=== PATIENT | female | born 1955 | race Caucasian/White ===

== ENCOUNTER 2017-03-11 11:14 | Emergency (ER) | payer BC ==
[2017-03-11 11:26] VITALS: BP 148/76
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
== END 2017-03-11 11:42 | disposition home or self-care (01) ==
LOC: UCEAST 11:14
DX: S60.042A Contusion of left ring finger without damage to nail, initial encounter (principal); E78.5 Hyperlipidemia, unspecified; I10 Essential (primary) hypertension; F17.210 Nicotine dependence, cigarettes, uncomplicated; W22.8XXA Striking against or struck by other objects, initial encounter; Y92.9 Unspecified place or not applicable
CPT/HCPCS: 99213; G0463

== ENCOUNTER 2017-03-11 11:45 | Day surgery (SDC) | payer BC ==
[~2017-03-11 11:45] MED LIST: Acetaminophen TAB* 325 MG PO PRN; Buffered Lidocaine 0.9% SYRIN* 5 ML/SYR SYRINGE INTRADERM ONE
[2017-03-11] MEDS ORDERED: fentaNYL* 50 MCG/ML 2 ML VIAL (100 MCG VIAL) ONE (12:10)
[2017-03-11] MEDS ORDERED: Midazolam* 1 MG/ML 2 ML VIAL (2 MG) ONE (12:10)
[2017-03-11 13:52] VITALS: BP 144/68
[2017-03-11] MEDS ORDERED: Tetracaine 0.5% OPTH.SOL 4 ML* 1 DROP BTL ONE (16:14)
[2017-03-11] MEDS ORDERED: Lidocaine 1% MPF* 2 ML VIAL ONE (16:14)
[2017-03-11] MEDS ORDERED: acetaZOLAMIDE TAB* 250 MG ONE (16:14)
[2017-03-11] MEDS ORDERED: Ketorolac 0.5% OPHTH (NF) 0.5 % 5 ML BTL ONE (16:14)
[2017-03-11] MEDS ORDERED: Povidone Iodine 5% OPTH* 30 ML BTL ONE (16:14)
[2017-03-11] MEDS ORDERED: Phenylephrine 2.5% OPTH.SOL* 2 ML BTL ONE (16:14)
[2017-03-11] MEDS ORDERED: Cyclopentolate 1% OPTH.SOL* 2 ML BTL ONE (16:14)
[2017-03-11] MEDS ORDERED: Tropicamide 1% OPTH.SOL* BTL ONE (16:14)
[2017-03-11] MEDS ORDERED: Neomycin/Polymy/Dex OPHTH.OIN* 3.5 GM ONE (16:14)
[2017-03-11] MEDS ORDERED: Buffered Lidocaine 0.9% SYRIN* 5 ML/SYR SYRINGE ONE (16:14)
--- NOTE | 2017-03-12 03:27 | OP ---
DATE OF OPERATION: 03/11/17 - [facility] DATE OF : 55 SURGEON: Paul Linder MD ANESTHESIOLOGIST: Preston Navarro MD ANESTHESIA: Monitored anesthesia care. PRE-OP DIAGNOSIS: Cataract, right eye. POST-OP DIAGNOSIS: Cataract, right eye. OPERATIVE PROCEDURE: Cataract surgery of the right eye. IMPLANTS: SN60WF 24.0 diopter lens to the right eye. COMPLICATIONS: None. DESCRIPTION OF PROCEDURE: The patient was given phenylephrine 2.5% and cyclopentolate 1% eye drops to the operative eye in the preoperative area. The patient was brought to the operating room where a time-out was taken to identify the correct patient, site and side of the surgery. The patient's right eye was prepped and draped in the usual sterile fashion with 5% Betadine. A second time- out was taken to verify the correct patient, site and side of surgery, and correct lens selection. A lid speculum was placed to the right eye. A 1-mm paracentesis blade was used to make a clear corneal incision in the superotemporal position. Preservative-free 1% lidocaine was injected into the anterior chamber. DisCoVisc was then injected into the anterior chamber. A 2.75-mm keratome blade was used to make a triplanar incision at the inferotemporal position. A cystotome initiated a capsulorrhexis which was completed with Utrata forceps in a continuous and curvilinear manner. Hydrodissection of the lens was performed with BSS on a cannula. The lens could be spun in the capsular bag. The phacoemulsification handpiece was used with a [id number] technique to remove the nucleus in its entirety with 21.41 CDE. The I/A handpiece then removed the residual cortical lens material. DisCoVisc was injected to inflate the capsular bag. The planned SN60WF 24.0 diopter lens was injected in the capsular bag. The residual DisCoVisc was removed from the eye with the I/A handpiece. The corneal incisions were hydrated and no leaks occurred at physiologic pressure around 20 mmHg per palpation. The lid speculum was removed and drapes removed. Maxitrol ointment was placed to the surface of the operative eye. An adhesive patch and shield was placed in the operative eye. The patient was taken to the postoperative area in stable condition. [id number]/[facility] #: [id number] MTDLei
== END 2017-03-11 13:13 | disposition home or self-care (01) ==
LOC: OREAST 11:45
PROVIDERS: ATTEND Student in an Organized Health Care Education/Training Program
DX: H25.11 Age-related nuclear cataract, right eye (principal); F17.210 Nicotine dependence, cigarettes, uncomplicated; I25.10 Atherosclerotic heart disease of native coronary artery without angina pectoris; Z95.5 Presence of coronary angioplasty implant and graft; Z79.01 Long term (current) use of anticoagulants; I10 Essential (primary) hypertension
CPT/HCPCS: A9270-GY; J2250; J3010; V2632

== ENCOUNTER 2017-03-18 10:31 | Day surgery (SDC) | payer BC ==
[~2017-03-18 10:31] MED LIST changes: -Acetaminophen TAB* 325 MG PO PRN; +Buffered Lidocaine 0.9% SYRIN* 5 ML/SYR SYRINGE ONE; +Cyclopentolate 1% OPTH.SOL* 2 ML BTL ONE; +Ketorolac 0.5% OPHTH (NF) 0.5 % 5 ML BTL ONE; +Lidocaine 1% MPF* 2 ML VIAL ONE; +Neomycin/Polymy/Dex OPHTH.OIN* 3.5 GM ONE; +Phenylephrine 2.5% OPTH.SOL* 2 ML BTL ONE; +Povidone Iodine 5% OPTH* 30 ML BTL ONE; +Tetracaine 0.5% OPTH.SOL 4 ML* 1 DROP BTL ONE; +Tropicamide 1% OPTH.SOL* BTL ONE; +acetaZOLAMIDE TAB* 250 MG ONE
[2017-03-18] MEDS ORDERED: Midazolam* 1 MG/ML 2 ML VIAL (2 MG) ONE (11:30)
[2017-03-18 12:40] VITALS: BP 147/57
--- NOTE | 2017-03-19 01:10 | OP ---
DATE OF OPERATION: 03/18/17 [facility] DATE OF : 55 SURGEON: Paul Linder MD. ANESTHESIOLOGIST: Jason Ramirez DO ANESTHESIA: Monitored anesthesia care. PRE-OP DIAGNOSIS: Cataract, left eye. POST-OP DIAGNOSIS: Cataract, left eye. PROCEDURE PERFORMED: Cataract surgery of the left eye. IMPLANTS: SN60WF 24.5 diopter lens, left eye. COMPLICATIONS: None. DESCRIPTION OF PROCEDURE: The patient was given phenylephrine 2.5% and cyclopentolate 1% eye drops to the operative eye in the preoperative area. The patient was brought to the operating room where a time-out was taken to identify the correct patient, site, and side of the surgery. The patient's left eye was prepped and draped in the usual sterile fashion with 5% Betadine. A second time- out was taken to verify the correct patient, site and side of the surgery, and correct lens selection. A lid speculum was placed to the left eye. A 1-mm paracentesis blade was used to make a clear corneal incision in the inferotemporal position. Preservative-free 1% lidocaine was injected into the anterior chamber. DisCoVisc was then injected into the anterior chamber. A 2.75-mm keratome blade was used to make a triplanar incision at the superotemporal position. A cystotome initiated a capsulorrhexis, which was completed with Utrata forceps in a continuous and curvilinear manner. Hydrodissection of the lens was performed with BSS on a cannula. The lens could be spun in the capsular bag. The phacoemulsification handpiece was used with a [id number] technique to remove the nucleus in its entirety with 19.63 CDE. The I/A handpiece then removed the residual cortical lens material. DisCoVisc was injected to inflate the capsular bag. The planned SN60WF 24.5 diopter lens was injected into the capsular bag. The residual DisCoVisc was removed from the eye with the I/A handpiece. The corneal incisions were hydrated and no leaks occurred at physiologic pressure around 20 mmHg per palpation. The lid speculum was removed and drapes removed. Maxitrol ointment was placed on the surface of the operative eye. An adhesive patch and shield was placed on the operative eye. The patient was taken to the postoperative area in stable condition. [id number]/[facility] #: [id number] [facility]ITAL[facility]i
== END 2017-03-18 12:23 | disposition home or self-care (01) ==
LOC: OREAST 10:31
PROVIDERS: ATTEND Student in an Organized Health Care Education/Training Program
DX: H25.12 Age-related nuclear cataract, left eye (principal); I25.10 Atherosclerotic heart disease of native coronary artery without angina pectoris; I10 Essential (primary) hypertension; E78.2 Mixed hyperlipidemia; F17.210 Nicotine dependence, cigarettes, uncomplicated; F41.1 Generalized anxiety disorder; R23.8 Other skin changes; Z79.01 Long term (current) use of anticoagulants; Z95.5 Presence of coronary angioplasty implant and graft
CPT/HCPCS: A9270-GY; J2250; V2632